=== PATIENT | male | born 1945 | race Caucasian/White ===

== ENCOUNTER → 2017-09-25 | Outpatient (CLI) | payer MEDICARE ==
--- NOTE | 2017-09-25 15:34 | CT ---
EXAMINATION TYPE: CT brain wo con DATE OF EXAM: 09/25/2017 COMPARISON: NONE HISTORY: Bad memory CT DLP: 1017.9 mGycm. Automated Exposure Control for Dose Reduction was Utilized. TECHNIQUE: CT scan of the head is performed without contrast. FINDINGS: There is no acute intracranial hemorrhage or midline shift identified. There is diffuse v entricular and sulcal prominence consistent with diffuse age-related cerebral atrophy. There is low- attenuation in the periventricular white matter consistent with chronic small vessel ischemic change. No suspicious extra-axial fluid collection is identified. Bilateral margo bullosa of the middle jaydon al turbinate and that are nonocclusive are incidentally identified. Minimal mucosal thickening within the ethmoid and right frontal sinuses are noted. 7 mm mucosal retention cyst versus polyp is seen of the anterior right maxillary sinus. Remaining paranasal sinuses and mastoid air cells are well aerat ed. No fluid within the middle air cavities. Cerumen is noted within the right external auditory mariah l. Atherosclerosis is seen in the intracranial vasculature. IMPRESSION: 1. No acute intracranial hemorrhage or midline shift. 2. There is diffuse age-related cerebral atrophy and chronic small vessel ischemic change noted. 3. Mild paranasal sinus disease and 7 mm right maxillary mucosal retention cyst versus polyp.
--- NOTE | 2017-09-26 12:30 | US ---
EXAMINATION TYPE: US carotid duplex BILAT DATE OF EXAM: 09/25/2017 COMPARISON: NONE CLINICAL HISTORY: R41.3 Amnesia,G31.84 Cognitive impairment. EXAM MEASUREMENTS: RIGHT: Peak Systolic Velocity (PSV) cm/sec ----- Right CCA: 91.7 ----- Right ICA: 100.6 ----- Right ECA: 58.1 ICA/CCA ratio: 1.1 RIGHT: End Diastole cm/sec ----- Right CCA: 13.4 ----- Right ICA: 33.3 ----- Right ECA: 8.4 LEFT: Peak Systolic Velocity (PSV) cm/sec ----- Left CCA: 92.5 ----- Left ICA: 92.5 ----- Left ECA: 60.5 ICA/CCA ratio: 1.0 LEFT: End Diastole cm/sec ----- Left CCA: 19.5 ----- Left ICA: 30.7 ----- Left ECA: 10.0 VERTEBRALS (direction of flow): Right Vertebral: Antegrade Left Vertebral: Antegrade Rhythm: Normal Minimal/Mild amount of plaque visualized bilaterally. No elevated velocities, no significant stenosis Grayscale, color Doppler, spectral Doppler imaging performed of the carotid arteries IMPRESSION: No hemodynamic significant stenosis of the proximal internal carotid arteries bilaterall y by Doppler criteria. This is an indirect measurement of carotid stenosis
--- NOTE | 2017-10-05 11:48 | ECHOF ---
Referral Reason:R41.3 Amnesia,G31.84 Cognitive impairment MEASUREMENTS -------- HEIGHT: 195.6 cm WEIGHT: 113.4 kg BP: 144/73 RVIDd: 2.6 cm (< 3.3) IVSd: 0.9 cm (0.6 - 1.1) LVIDd: 5.7 cm (3.9 - 5.3) LVPWd: 1.2 cm (0.6 - 1.1) IVSs: 1.3 cm LVIDs: 4.3 cm LVPWs: 1.6 cm LAESV Index (A-L): 31.08 ml/m Ao Diam: 3.9 cm (2.0 - 3.7) AV Cusp: 1.7 cm (1.5 - 2.6) LA Diam: 2.8 cm (2.7 - 3.8) MV E [place]: 0.59 m/s MV DecT: 348 ms MV A [place]: 0.60 m/s MV E/A Ratio: 0.97 RAP: 5.00 mmHg RVSP: 33.65 mmHg FINDINGS -------- Sinus rhythm. This was a technically adequate study. The left ventricular size is normal. There is borderline concentric left ventricular hypertrophy. Overall left ventricular systolic function is normal with, an EF between 55 - 60 %. The right ventricle is normal in size and function. Normal LA size by volume 22+/-6 ml/m2. The right atrium is normal in size. Aortic valve is trileaflet and is mildly thickened. There is no evidence of aortic regurgitation. There is no evidence of aortic stenosis. The mitral valve leaflets are mildly thickened. There is trace to mild mitral regurgitation. Mild tricuspid regurgitation present. There is borderline pulmonary artery hypertension. The righ t ventricular systolic pressure, as measured by Doppler, is 33.65mmHg. The pulmonic valve was not well visualized. The aortic root size is normal. IVC Not well visulized. The pericardium is normal. There is no pericardial effusion. CONCLUSIONS -------- 1. Sinus rhythm. 2. This was a technically adequate study. 3. The left ventricular size is normal. 4. There is borderline concentric left ventricular hypertrophy. 5. Overall left ventricular systolic function is normal with, an EF between 55 - 60 %. 6. Normal LA size by volume 22+/-6 ml/m2. 7. Aortic valve is trileaflet and is mildly thickened. 8. The mitral valve leaflets are mildly thickened. 9. There is trace to mild mitral regurgitation. 10. Mild tricuspid regurgitation present. 11. There is borderline pulmonary artery hypertension. 12. The right ventricular systolic pressure, as measured by Doppler, is 33.65mmHg. 13. The pulmonic valve was not well visualized. 14. The aortic root size is normal. 15. IVC Not well visulized. 16. There is no pericardial effusion. BLUEPRINTER: Myron Johnson RDCS
== END | disposition home or self-care (01) ==
LOC: RADECHMAIN 15:05
PROVIDERS: ATTEND Family Medicine
DX: G31.1 Senile degeneration of brain, not elsewhere classified (principal); I08.3 Combined rheumatic disorders of mitral, aortic and tricuspid valves; I27.20 Pulmonary hypertension, unspecified; G31.84 Mild cognitive impairment of uncertain or unknown etiology
CPT/HCPCS: 70450; 93306; 93880

== ENCOUNTER → 2018-05-21 | Outpatient (CLI) | payer MEDICARE ==
--- NOTE | 2018-05-21 14:16 | CT ---
EXAMINATION TYPE: CT sinus wo con DATE OF EXAM: 05/21/2018 COMPARISON: None HISTORY: 72-year-old male with dizziness and Chronic sinusitis. Sinoplasty 2 months ago. TECHNIQUE: Contiguous axial scanning of the [ ] without IV contrast. Coronal and sagittal reconstru ctions performed. CT DLP: 619 mGycm Automated exposure control for dose reduction was used. FINDINGS: There is trace mucosal thickening along the floor of the left maxillary sinus and a 1.2 cm polyp or m ucosal retention cyst along the anterior wall of the right maxillary sinus. Scattered moderate mucosa l thickening within the left ethmoid air cells and mild within the right ethmoid air cells. The front al and sphenoid sinuses are well pneumatized. Rightward nasal septal deviation. The osteomeatal complexes are patent. No air-fluid levels. Orbits and globes are intact. There is mild generalized supratentorial volume loss. Mastoid air cells and middle ear cavities are w ell pneumatized. IMPRESSION: 1. NO AIR-FLUID LEVELS TO SUGGEST ACUTE SINUSITIS. 2. HOWEVER, THERE IS MODERATE CHRONIC LEFT ETHMOID SINUS DISEASE AND MILD WITHIN THE RIGHT ETHMOID AN D BILATERAL MAXILLARY SINUSES. 3. RIGHTWARD NASAL SEPTAL DEVIATION.
== END | disposition home or self-care (01) ==
LOC: RADCTMAIN 13:32
PROVIDERS: ATTEND Physician Assistant
DX: J32.2 Chronic ethmoidal sinusitis (principal); J32.0 Chronic maxillary sinusitis; J34.2 Deviated nasal septum
CPT/HCPCS: 70486

== ENCOUNTER → 2019-12-06 | Outpatient (CLI) | payer MEDICARE, BC ==
--- NOTE | 2019-12-06 11:58 | XR ---
EXAMINATION TYPE: XR abdomen 2V DATE OF EXAM: 12/06/2019 CLINICAL HISTORY: Abdominal pain not further specified. TECHNIQUE: Supine and upright views of the abdomen are obtained. COMPARISON: None. FINDINGS: Gas is seen in poorly distended stomach left upper quadrant . Scattered gas is seen in non- distended small bowel loops. Gas and fecal material is seen in non-distended colon along the periphe ry. Bilateral pelvic phleboliths. No pneumoperitoneum. Lung bases are clear. Multilevel spurring in t he visualized spine. Moderate narrowing and spurring in both hip joints. IMPRESSION: Overall nonspecific but strongly favor nonobstructive bowel gas pattern.
== END | disposition home or self-care (01) ==
LOC: RADXRMAIN 11:26
PROVIDERS: ATTEND Family Medicine
DX: R10.84 Generalized abdominal pain (principal)
CPT/HCPCS: 74019

== ENCOUNTER → 2019-12-27 | Outpatient (CLI) | payer MEDICARE, BC ==
--- NOTE | 2019-12-28 11:19 | CT ---
EXAMINATION TYPE: CT abdomen pelvis w con DATE OF EXAM: 12/27/2019 COMPARISON: HISTORY: c/o constipation CT DLP: 1732.9 mGycm Automated exposure control for dose reduction was used. TECHNIQUE: Helical acquisition of images from the lung bases through the pelvis have been completed. CONTRAST: Performed with Oral Contrast and with IV Contrast, patient injected with 100 mL of Isovue 300. FINDINGS: There is increased AP diameter of the chest which can be seen in underlying COPD. There is a hiatal hernia present. Umbilical hernia contains fat. LUNG BASES: No significant abnormality is appreciated. AORTA: Atheromatous changes are present. Some ectasia present within the distal abdominal aorta, axi al image #39 LIVER/GB: Low dense focus present within anterior margin of the liver, axial image #12 measures 15 mm and statistically likely to represent cysts. The liver shows low attenuation suggesting underlying h epatic steatosis. PANCREAS: At the anterior aspect of the head of the pancreas there is a cystic focus measuring 2.6 x 1.9 x 1.8 cm. No evident ductal dilatation or evident soft tissue component. No significant enhanceme nt.. SPLEEN: No significant abnormality is seen. ADRENALS: No significant abnormality is seen. KIDNEYS: Right kidney shows an exophytic focus at the lower pole which is oval shows low attenuation measuring 4.9 x 3.3 x 3.3 cm. The lower pole cortex there is also cystic focus which is subcentimeter in size. Midpole anterior cortex there is a similar subcentimeter cystic focus on the right. Nonobst ructive calculus is suspected on the left both of the lower pole measuring approximately 4 mm and als o at the midpole slightly smaller. No evident ureteral calculus or hydronephrosis bilaterally. Subcen timeter cystic focus present associated with the anterior aspect of the left kidney midpole. REPRODUCTIVE ORGANS: Prostate shows associated calcifications and is enlarged. There is inferior impr ession on the urinary bladder. BOWEL: Diverticular changes associated with the sigmoid colon. The appendix is normal. There is no b owel obstruction. FREE AIR: No Free Air visible. ASCITES: None visible. PELVIC ADENOPATHY: None visualized. RETROPERITONEAL ADENOPATHY: No Retroperitoneal Adenopathy visible. URINARY BLADDER: Bladder wall thickening could be due to chronic outlet obstruction or lack of diste ntion. OSSEOUS STRUCTURES: Degenerative disc changes are noted in the lumbar spine, loss of disc height L5- S1 with associated spondylosis. IMPRESSION: NONOBSTRUCTIVE LEFT NEPHROLITHIASIS. PROBABLE HEPATIC STEATOSIS. PROBABLE CYSTS WITHIN THE KIDNEYS, L IVER, INDETERMINATE PANCREATIC CYSTIC FOCUS, FOLLOW-UP IS RECOMMENDED, PANCREAS MRI MAY BE OF BENEFIT FOR BETTER EVALUATION. HIATAL HERNIA. FINDINGS IN THE PROSTATE IS DESCRIBED, DIVERTICULOSIS, ADDITIO NAL FINDINGS ABOVE.
== END | disposition home or self-care (01) ==
LOC: RADCTMAIN 15:39
PROVIDERS: ATTEND Family Medicine
DX: N20.0 Calculus of kidney (principal); K44.9 Diaphragmatic hernia without obstruction or gangrene; K57.90 Diverticulosis of intestine, part unspecified, without perforation or abscess without bleeding
CPT/HCPCS: 82565; 84520; 74177; 36415; Q9967

== ENCOUNTER → 2022-02-03 | Outpatient (CLI) | payer MEDICARE, BC ==
--- NOTE | 2022-02-05 06:53 | MR ---
EXAMINATION TYPE: MR Prostate wo/w con DATE OF EXAM: 02/03/2022 COMPARISON: CT abdomen and pelvis December 27, 2019 INDICATION: Elevated PSA PSA: 9.89 ng/ml on December 09, 2021 rising from 6.91 December 10, 2020 and 3.27 October 29, 2018 Recent Biopsy and Date: none. Pathology Report (If Applicable): n/a TECHNIQUE: Examination was performed using a 3T MRI without an endorectal coil. Multiparametric imaging was perf ormed with T2 mutliplanar sequences, axial diffusion weighted imaging and dynamic contrast enhanced i maging, utilizing 15 mL intravenous Gadavist gadolinium contrast. FINDINGS: There is no clinically significant cancer identified. PROSTATE VOLUME: 3.5 cm SI x 4.1 cm AP x 5.5 cm LR Vol= 41.33 cc Predicted PSA equals 4.96 PSA DENSITY: 0.24 ng/ml/cc Prostate gland is mildly enlarged in size. The peripheral zone shows large area of hypointensity and ADC mapping with increased signal on diffus ion-weighted imaging mid to basilar segment with some focal areas showing marked hypointensity and ma rkedly hyperintense signal on diffusion-weighted imaging greatest in the lateral aspect mid zone leve l measuring greater than 1.5 cm. At least PI-RADS 4 but suspected PI-RADS 5 lesion. The right aspect of the transitional zone shows ill-defined heterogeneous moderately hypointense lesi on on T2-weighted images greatest at mid zone level with indistinct margin from the transitional zone measuring near 2.4 cm long axis showing some mild restricted diffusion similar at least PI-RADS 4 bu t suspected PI-RADS 5 lesion. Seminal vesicles are symmetric and within normal limits. Definitive adjacent adenopathy is seen. Bladder is adequately distended without significant wall thickening or trabeculation. Visualized osse ous structures are intact. Incidental small to moderate-sized symmetric bilateral hip joint effusions IMPRESSION: Mildly enlarged prostate. Abnormalities in the right aspect of the peripheral and transit ional zone warrant further workup. There is fairly large area of involvement thought present. Right-s ided sampling follow-up is advised. A focus of clinically significant cancer is thought present. Highest Assessment Category: 5 MRI Stage: T0 N0 M0 based on review of pelvic images. False negative rates for MRI range from 5-20% depending on risk profile. Assessment Categories: 1 ? Very low (clinically significant cancer is highly unlikely to be present) 2 ? Low (clinically significant cancer is unlikely to be present) 3 ? Intermediate (the presence of clinically significant cancer is equivocal) 4 ? High (clinically significant cancer is likely to be present) 5 ? Very high (clinically significant cancer is highly likely to be present) Locations: PZ = peripheral zone; TZ = transition zone CZ=central zone; AFS = anterior fibromuscular stroma a=anterior half (i.e. PZa=anterior half of peripheral zone); pm= posterior medial (i.e PZpm) pl = postero-lateral (i.e. PZpl); p = posterior half (i.e. TZp) ; a = anterior half (i.e TZa or P Za) Other: N=no or no; E= equivocal; Y=yes EPE = extraprostatic extension NVB = neurovascular bundle NA = not applicable/not available
== END | disposition home or self-care (01) ==
LOC: RADMRIMAIN 09:20
PROVIDERS: ATTEND Urology
DX: R97.20 Elevated prostate specific antigen [PSA] (principal); N40.0 Benign prostatic hyperplasia without lower urinary tract symptoms
CPT/HCPCS: 72197; A9585

== ENCOUNTER → 2022-09-19 | Outpatient (CLI) | payer MEDICARE, BC | END | disposition home or self-care (01) | LOC: LABWHC1 11:19 | PROVIDERS: ATTEND Radiology Radiation Oncology | DX: C61 Malignant neoplasm of prostate (principal); Z85.850 Personal history of malignant neoplasm of thyroid | CPT/HCPCS: 36415; 84153 ==

== ENCOUNTER → 2022-12-05 | Outpatient (CLI) | payer MEDICARE, BC | END | disposition home or self-care (01) | LOC: LABWHC1 12:17 | PROVIDERS: ATTEND Radiology Radiation Oncology | DX: C61 Malignant neoplasm of prostate (principal); Z79.818 Long term (current) use of other agents affecting estrogen receptors and estrogen levels; Z85.850 Personal history of malignant neoplasm of thyroid | CPT/HCPCS: 36415; 84153 ==